=== PATIENT | female | born 1955 | race Caucasian/White ===

== ENCOUNTER → 2016-12-08 | Outpatient (CLI) | payer BC ==
--- NOTE | 2016-12-08 14:42 | RAD ---
Transabdominal and endovaginal pelvic ultrasound History: Irregular menses Comparison: None. Technique: Transabdominal imaging was performed to evaluate optimally the uterine fundus. Endovaginal imaging was performed to evaluate optimally the endometrial stripe and lower uterine segment. Findings: Transabdominal imaging: The uterus measures 7.3 cm in length. Uterus is suboptimally evaluated. Ovaries are not well seen with transabdominal imaging. Endovaginal imaging: The endometrium is heterogeneous. Endometrial thickness is up to 10 mm. There is also evidence of a small amount of endometrial fluid. Nabothian cysts are seen. There may be a heterogeneity in appearance of the cervix. Neither ovary is visualized with endovaginal imaging. Impression: 1. The endometrium is heterogeneous and demonstrates presence of endometrial fluid. There is endometrial thickening up to 10 mm. Patient would be expected to be postmenopausal given age of 61 years. Consequently, the endometrial abnormality could be due to endometrial polyp, endometrial hyperplasia, endometrial carcinoma. Endometrial sampling may be of benefit. 2. Question irregular appearance of the cervix. Correlate with pelvic examination. 3. Ovaries are not visualized or evaluated with transabdominal or endovaginal imaging.
== END | disposition home or self-care (01) ==
LOC: US 14:49
PROVIDERS: ATTEND Family Medicine
DX: N92.6 Irregular menstruation, unspecified (principal)
CPT/HCPCS: 76830; 76856